=== PATIENT | male | born 2000 | race Two or more races ===

== ENCOUNTER 2024-03-04 18:51 | Emergency (ER) | payer OTHER ==
[~2024-03-04] VITALS: Ht 185.4 cm; Wt 111.3 kg
[2024-03-04 19:08] VITALS: BP 128/71; PULSE 96; RESP 96; TEMP 98.2; O2SAT 99
[2024-03-04] MEDS: TETANUS-DIPTH-ACEL PERTUSSIS 0.5ML SYR Tdap IM ONE (20:06)
== END 2024-03-04 20:24 | disposition home or self-care (01) ==
LOC: EDBD 18:51 → ER 18:51
DX: S01.01XA Laceration without foreign body of scalp, initial encounter (principal); W22.8XXA Striking against or struck by other objects, initial encounter; Y93.89 Activity, other specified; Y92.89 Other specified places as the place of occurrence of the external cause; Y99.0 Civilian activity done for income or pay
CPT/HCPCS: 12001; 90471; 90715